=== PATIENT | female | born 1930 | race Caucasian/White ===

== ENCOUNTER 2021-03-02 06:31 | Emergency (ER) | payer OTHER ==
[~2021-03-02] VITALS: Ht 160 cm; Wt 51.7 kg
--- NOTE | 2021-03-02 06:44 | NUR ---
Pt bibra c/o dizziness since last night. Pt aaox4 breathing evenly and unlabored. Pt attached to monitor and pox. SKin warm, dry, and intact. Rt ac 20g initiated and blood drawn and sent to lab. Pt given blanket and call light within reach
[2021-03-02] MEDS: IV NS 0.9% 1,000 ML BAG IV ONE (07:00)
--- NOTE | 2021-03-02 07:05 | NUR ---
Gave report to HANNA Wiseman for tyra
--- NOTE | 2021-03-02 07:05 | NUR ---
Gave report to HANNA Wiseman for tyra
--- NOTE | 2021-03-02 07:08 | NUR ---
taken to radiology
[2021-03-02 07:11] LABS: BASOPHILS % (AUTO) 0.3 % (0.0-2.0); EOSINOPHILS % (AUTO) 2.2 % (0.0-6.0); HEMATOCRIT 38 % (33-45); HEMOGLOBIN 12.5 g/dL (11.5-14.8); LYMPHOCYTES # (AUTO) 0.8 K/uL (0.8-4.8); LYMPHOCYTES % (AUTO) 11.2 % (20.0-44.0); MEAN CORPUSCULAR HGB CONC 33 g/dl (31.0-36.0); MEAN CORPUSCULAR VOLUME 93 fL (82-100); MONOCYTES # (AUTO) 0.5 K/uL (0.1-1.30); MONOCYTES % (AUTO) 7.1 % (2.0-12.0); NEUTROPHILS # (AUTO) 5.9 K/uL (1.8-8.9); NEUTROPHILS % (AUTO) 79.2 % (43.0-81.0); PLATELET COUNT (AUTO) 180 K/uL (150-450); RED BLOOD CELL COUNT(AUTO) 4.07 MIL/uL (4.0-5.2); WHITE BLOOD COUNT (AUTO) 7.4 K/uL (4.3-11.0)
[2021-03-02 07:25] LABS: CALCIUM, SERUM 8.4 mg/dL (8.5-10.1); CARBON DIOXIDE 28 mmol/L (21-32); CHLORIDE 109 mmol/L (98-107); CREATININE 0.7 mg/dL (0.6-1.3); GLUCOSE 131 mg/dL (74-106); POTASSIUM 4.6 mmol/L (3.5-5.1); SODIUM SERUM 143 mmol/L (136-145); UREA NITROGEN, BLOOD 14 mg/dL (7-18)
[2021-03-02 07:36] LABS: ALANINE AMINOTRANSFERASE 28 U/L (12-78); ALBUMIN 3.3 g/dL (3.4-5.0); ALKALINE PHOSPHATASE 100 U/L (46-116); ASPARTATE AMINOTRANSFERASE 36 U/L (15-37); BILIRUBIN,DIRECT 0.2 mg/dL (0.0-0.2); BILIRUBIN,TOTAL 0.5 mg/dL (0.2-1.0); TOTAL PROTEIN, SERUM 7.1 g/dL (6.4-8.2)
[2021-03-02] MEDS ORDERED: MECL-159 PO (07:58)
[2021-03-02] MEDS: MECLIZINE HCL 25 MG TABLET PO ONE (08:06)
[2021-03-02] MEDS ORDERED: MECLIZINE HCL 25 MG TABLET ONE (08:08)
--- NOTE | 2021-03-02 08:28 | NUR ---
pt up amb with assistance to the br. voided back to bed . son at bedside spoke with md fierro stable for d/c . PT. VERBALIZED UNDERSTANDING OF AFTERCARE INSTRUCTIONS.IV removed. Catheter intact and site benign. Pressure and 4x4 applied to site. No bleeding noted. pt given meclize 25 mg po for dizzness
[2021-03-02 08:32] VITALS: BP 122/73
== END 2021-03-02 08:32 | disposition home or self-care (01) ==
LOC: ER 06:34
DX: R42 Dizziness and giddiness (principal)
CPT/HCPCS: 36415; 70450; 71045; 80048; 80076; 84484; 85025; 93005; 96360; 99285; J7030; J8597